=== PATIENT | male | born 1960 | race Caucasian/White ===

== ENCOUNTER → 2016-11-17 | Outpatient (REF) | payer OTHER ==
[~2016-11-17] MED LIST: AC325T PO; ALPH200C2 PO; ARGI500T4 PO; BLOO1EAC87 MC; CINN1CAP2 PO; DOCU100T2 PO; DOXY100C42 PO; IBP200T PO; INSU100V8 SC; LANC-956 MC; METF1000 PO; METF500T4 PO; MULT1TAB69 PO; POLYETHYLENE GL17 GM PO; SYRI-259 MC; TESTSTRIPS MC; TRM50T PO; VITA-189 PO
== END ==
LOC: LAB 11:15
PROVIDERS: ATTEND Family Medicine
DX: E11.9 Type 2 diabetes mellitus without complications (principal)
CPT/HCPCS: 83036